=== PATIENT | male | born 1965 | race African-American/Black ===

== ENCOUNTER 2021-08-15 17:25 | Emergency (ER) | payer BC ==
[~2021-08-15] VITALS: Ht 190.5 cm; Wt 108.9 kg
[2021-08-15 17:42] VITALS: BP_SYST 136
[2021-08-15] MEDS ORDERED: DIPH-TET-PERTUS Vaccine 0.5 ML VIAL (ADACEL) I.M. ONE (18:30)
[2021-08-15] MEDS ORDERED: IBUPROFEN 800 MG TABLET PO ONE (18:30)
[2021-08-15] MEDS ORDERED: LIDOCAINE 2%, 20 ML MDV ONE (18:53)
[2021-08-15] MEDS ORDERED: LIDOCAINE 1%, 20 ML MDV 0 ML ONE (18:53)
[2021-08-15] MEDS ORDERED: LIDOCAINE MPF 2% 5mL VIAL INJ ONE (19:00)
[2021-08-15] MEDS ORDERED: cephALEXin 500 MG CAPSULE PO ONE (20:15)
[2021-08-15] MEDS ORDERED: CEPH-548 PO (20:18)
[2021-08-15] MEDS ORDERED: BACI15OI13 TP (20:18)
[2021-08-15] MEDS ORDERED: BACITRACIN ZINC 15 GM TOPICAL OINTMENT TP SCH (20:30)
== END 2021-08-15 21:20 | disposition home or self-care (01) ==
LOC: SED 17:25
DX: S61.411A Laceration without foreign body of right hand, initial encounter (principal); W26.8XXA Contact with other sharp object(s), not elsewhere classified, initial encounter; Y93.89 Activity, other specified; Y92.89 Other specified places as the place of occurrence of the external cause; Y99.8 Other external cause status
CPT/HCPCS: 12002; 99283; J2001